=== PATIENT | female | born 1970 | race Caucasian/White ===

== ENCOUNTER 2016-08-07 15:59 | Emergency (ER) | payer OTHER ==
[~2016-08-07] VITALS: Ht 177.8 cm; Wt 91.0 kg
[~2016-08-07 15:59] MED LIST: ADDERALL30 MG PO
[2016-08-07] MEDS ORDERED: MOTRIN800 MG PO (18:35)
[2016-08-07 19:06] VITALS: BP 113/63
== END 2016-08-07 19:08 | disposition home or self-care (01) ==
LOC: EME 15:59
DX: M71.21 Synovial cyst of popliteal space [Baker], right knee (principal); S89.81XA Other specified injuries of right lower leg, initial encounter; M23.91 Unspecified internal derangement of right knee; F17.200 Nicotine dependence, unspecified, uncomplicated
CPT/HCPCS: 93971; 99281; 99284; J3010